=== PATIENT | female | born 1985 | race Caucasian/White ===

== ENCOUNTER 2017-07-22 22:37 | Emergency (ER) | payer OTHER ==
[~2017-07-22] VITALS: Ht 160 cm; Wt 53.1 kg
[2017-07-23 01:00] VITALS: BP 108/65
--- NOTE | 2017-07-23 01:00 | NUR ---
PT AMBULATORY TO ER BED 15. BIBFAMILY C/O GENERALIZED WEAKNESS WITH N/V X 1 DAY. 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 VSS/RESP EVEN UNLABORED/NAD NOTED/SKIN WARM AND DRY/AOX4. AWAITING MD GOLD.
--- NOTE | 2017-07-23 01:10 | NUR ---
AT BEDSIDE FOR EVAL.
[2017-07-23] MEDS ORDERED: IBUPROFEN 400 MG TABLET ONE (01:19)
[2017-07-23] MEDS ORDERED: IBUPROFEN 400 MG TABLET PO ONE (01:30)
== END 2017-07-23 03:59 | disposition home or self-care (01) ==
LOC: ER 22:44
DX: J02.9 Acute pharyngitis, unspecified (principal)
CPT/HCPCS: A4606; Z7610